=== PATIENT | male | born 1950 | race Caucasian/White ===

== ENCOUNTER 2025-01-19 21:43 | Emergency (ER) | payer MEDICARE, SELFPAY ==
[2025-01-19 21:54] VITALS: BP 116/80; PULSE 96; RESP 16; TEMP 36.4; O2SAT 94
[2025-01-19 22:58] VITALS: BP 116/80; PULSE 96; RESP 16; TEMP 36.4; O2SAT 94
--- NOTE | 2025-01-20 03:58 | ED.SKABFB ---
HPI - Skin/Abscess/Foreign Bdy General Chief complaint: Wound/Laceration Stated complaint: shingles Time Seen by Provider: 01/19/25 22:26 History of Present Illness HPI narrative: Patient noticed about 2 or 3 days ago that he was having some pain to his back that came to the front, he was unsure of his his chronic back pain, today he noticed a rash and came in. Had shingles vaccine 10 years ago Related Data Allergies Allergy/AdvReac Type Severity Reaction Status Date / Time No Known Allergies Allergy Verified 01/19/25 22:33 Review of Systems Review of Systems: All systems reviewed & are unremarkable except as noted in HPI and below Exam Narrative: EXAMINATION OF ORGAN SYSTEMS/BODY AREAS: Constitutional: Vital signs per nursing GENERAL:[No acute distress, non-toxic appearing.] HEAD: Normal with no signs of head trauma. EYES: EOMI, conjunctiva normal ENT: Hearing grossly intact LUNGS: Nonlabored breathing. HEART: [Regular rate and rhythm] ABD: [Soft], [nontender to palpation] EXT: Normal range of motion SKIN: dermatomal rash that spans across his right chest to the back, does not cross midline, with some vesicles NEURO: [Alert and oriented x 3. No gross focal sensory or strength deficits.] PSYCH: Normal affect Course Vital Signs Vital signs: Vital Signs Temperature 97.6 F 01/19/25 21:54 Pulse Rate 96 01/19/25 21:54 Respiratory Rate 16 01/19/25 21:54 Blood Pressure 116/80 01/19/25 21:54 Pulse Oximetry 94 01/19/25 21:54 Oxygen Delivery Room Air 01/19/25 21:54 Temperature 97.6 F 01/19/25 22:58 Pulse Rate 96 01/19/25 22:58 Respiratory Rate 16 01/19/25 22:58 Blood Pressure 116/80 01/19/25 22:58 Pulse Oximetry 94 01/19/25 22:58 Oxygen Delivery Room Air 01/19/25 21:54 MDM - Skin/Abscess/Foreign Bdy MDM Narrative Medical decision making narrative: Patient noticed about 2 or 3 days ago that he was having some pain to his back that came to the front, he was unsure if it is his chronic back pain, today he noticed a rash and came in. Had shingles vaccine 10 years ago On exam he does have a dermatomal rash that spans across his right chest to the back, does not cross midline, with some vesicles, consistent with shingles. I will start him on antiviral medication, 1st dose here, rest sent to the pharmacy, he already has lidocaine spray that he has been using, and I will also prescribe gabapentin, instructions discussed with the patient for titration. He does not live here and will be going back home in a few days, have asked him to follow up with his PCP at that time. Also instructed keeping it covered up to avoid spreading it to others, and to avoid anyone who is high risk. Patient agreeable to plan and return precautions Discharge Plan Discharge Clinical Impression: Shingles Patient Disposition: Home Condition: Stable Instructions: Antibiotic Form, Shingles (ED) Additional Instructions: Please keep the rash covered, take the medications as prescribed, and follow up with your doctor when she gets home. If you have any further issues you can always return to the nearest emergency room. Patient Language: Spanish Prescriptions: New valacyclovir [Valtrex] 1 gram tablet 1,000 mg PO Q8H 7 Days Qty: 21 0RF gabapentin 300 mg capsule 300 mg PO Q8H Qty: 30 0RF Rx Instructions: Take 1 tab once on day one, 1 tab twice a day on day 2, and 1 tab three times a day on day 3; you can continue to increase as needed for pain control up to 2 tabs three times a day. Follow-up/Referrals: PHYSICIAN NOT ON STAFF,NONSTAFF [Primary Care Provider]
== END 2025-01-19 22:59 | disposition home or self-care (01) ==
LOC: ANHED 22:41
PROVIDERS: Emergency Provider Emergency Medicine
DX: B02.9 Zoster without complications (principal)
CPT/HCPCS: 99283; A9270